=== PATIENT | female | born 1990 | race Caucasian/White ===

== ENCOUNTER 2016-06-29 13:35 | Inpatient (IN) | payer OTHER, MEDICAID ==
[~2016-06-29] VITALS: Ht 170.2 cm; Wt 81.6 kg
[2016-06-29 18:00] VITALS: BP 136/94
[2016-06-29] MEDS ORDERED: ENOXAPARIN 30 MG/0.3 ML (LOVENOX) SYR SC SCH (19:00)
[2016-06-29] MEDS: HYDROcodone/APAP 7.5 MG/325 MG (LORTAB, LORCET PLUS) TABLET PO PRN (19:50)
[2016-06-29] MEDS: DULoxetine 30 MG (CYMBALTA) CAP PO SCH (20:53)
[2016-06-29] MEDS: SENNA W/DOCUSATE (SENOKOT S) TABLET PO SCH (21:35)
[2016-06-29] MEDS ORDERED: DULO60CA6 PO (23:25)
[2016-06-29] MEDS ORDERED: CLON1TAB PO (23:25)
[2016-06-30 05:00] VITALS: BP 143/89
[2016-06-30] MEDS: HYDROcodone/APAP 7.5 MG/325 MG (LORTAB, LORCET PLUS) TABLET PO PRN ×4 (05:02→20:38)
[2016-06-30 06:16] LABS: BASOPHILS # (AUTO) 0.1 10^3/uL (0.0-0.1); BASOPHILS % (AUTO) 1 % (0-10); EOSINOPHILS # (AUTO) 0.2 10^3/uL (0.0-0.3); EOSINOPHILS % (AUTO) 3 % (0-10); LYMPHOCYTES # (AUTO) 1.7 X 10^3 (1.0-4.0); LYMPHOCYTES % (AUTO) 25 % (12-44); MEAN CORPUSCULAR HEMOGLOBIN 28 PG (25-34); MEAN CORPUSCULAR HGB CONC 34 G/DL (32-36); MEAN CORPUSCULAR VOLUME 84 FL (80-99); MEAN PLATELET VOLUME 11.4 FL (7.4-10.4); MONOCYTES # (AUTO) 0.3 X 10^3 (0.0-1.0); MONOCYTES % (AUTO) 5 % (0-12); NEUTROPHILS # (AUTO) 4.6 X 10^3 (1.8-7.8); NEUTROPHILS % (AUTO) 66 % (42-75); PLATELET COUNT 223 10^3/uL (130-400); RED BLOOD COUNT 3.85 10^6/uL (4.35-5.85); RED CELL DISTRIBUTION WIDTH 14.2 % (10.0-14.5); WHITE BLOOD COUNT 6.9 10^3/uL (4.3-11.0)
[2016-06-30 06:54] LABS: ALANINE AMINOTRANSFERASE 538 U/L (0-55); ALBUMIN 3.4 G/DL (3.2-4.5); ANION GAP 7 MMOL/L (5-14); ASPARTATE AMINO TRANSFERASE 169 U/L (5-34); BILIRUBIN,TOTAL 0.4 MG/DL (0.1-1.0); BLOOD UREA NITROGEN 10 MG/DL (7-18); BUN/CREATININE RATIO 14; CALCIUM 8.7 MG/DL (8.5-10.1); CARBON DIOXIDE 26 MMOL/L (21-32); CHLORIDE 105 MMOL/L (98-107); GFR ESTIMATED > 60; GLUCOSE 94 MG/DL (70-105); SODIUM 138 MMOL/L (135-145); TOTAL PROTEIN 6.2 G/DL (6.4-8.2)
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
[2016-06-30] MEDS: SENNA W/DOCUSATE (SENOKOT S) TABLET PO SCH ×2 (09:05→20:38)
[2016-06-30] MEDS: clonazePAM 1 MG (KlonoPIN) TAB PO SCH (09:05)
[2016-06-30] MEDS: DULoxetine 30 MG (CYMBALTA) CAP PO SCH ×2 (09:06→20:37)
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
[2016-06-30] MEDS: BACITRACIN OINTMENT 28 GM TUBE TOP SCH ×2 (14:20→21:00)
--- NOTE | 2016-06-30 15:06 | Therapy Group Daily Note ---
Therapy Daily Group Note Exercises Balance, Sit to/from Stand, Fine Motor, UE Exercise Other/Notes PT ambulated to Group using FWW at [facility]. Pt participated in PT/OT Group which involved Introduction (Name, Where are you from and Favorite Springtime Activity ), Socialization, Sit to Stand, Standing Balance, UE Ex/Fine Motor, Memory Recall for remembering a way to prevent fall in the home that were reviewed in the last Group a few days previous as well as Problem Solving during table top activity. Pt actively participated in Group by recalling Fall Prevention, performing EX and participating in table top game independently. Pt returned to room to rest at end of Group with all needs met. Start Time: 13:00 Stop Time: 14:15 Total Billed Treatment Time: 75 Total Billed Treatment 1, GRP THEO LAST DELI DEPARTMENT MANAGER Jun 30, 2016 15:06
[2016-06-30 18:50] VITALS: BP 138/86
[2016-06-30] MEDS: ENOXAPARIN 40 MG/0.4 ML (LOVENOX) SYR SC SCH (18:58)
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
[2016-07-01] MEDS: HYDROcodone/APAP 7.5 MG/325 MG (LORTAB, LORCET PLUS) TABLET PO PRN ×4 (01:35→22:53)
[2016-07-01 05:40] VITALS: BP 121/80
[2016-07-01 06:12] LABS: BASOPHILS # (AUTO) 0.1 10^3/uL (0.0-0.1); BASOPHILS % (AUTO) 1 % (0-10); EOSINOPHILS # (AUTO) 0.3 10^3/uL (0.0-0.3); EOSINOPHILS % (AUTO) 5 % (0-10); LYMPHOCYTES # (AUTO) 1.9 X 10^3 (1.0-4.0); LYMPHOCYTES % (AUTO) 35 % (12-44); MEAN CORPUSCULAR HEMOGLOBIN 29 PG (25-34); MEAN CORPUSCULAR HGB CONC 34 G/DL (32-36); MEAN CORPUSCULAR VOLUME 85 FL (80-99); MEAN PLATELET VOLUME 11.3 FL (7.4-10.4); MONOCYTES # (AUTO) 0.4 X 10^3 (0.0-1.0); MONOCYTES % (AUTO) 8 % (0-12); NEUTROPHILS # (AUTO) 2.9 X 10^3 (1.8-7.8); NEUTROPHILS % (AUTO) 52 % (42-75); PLATELET COUNT 222 10^3/uL (130-400); RED BLOOD COUNT 3.75 10^6/uL (4.35-5.85); RED CELL DISTRIBUTION WIDTH 14.3 % (10.0-14.5); WHITE BLOOD COUNT 5.6 10^3/uL (4.3-11.0)
[2016-07-01 06:47] LABS: ALANINE AMINOTRANSFERASE 535 U/L (0-55); ALBUMIN 3.3 G/DL (3.2-4.5); ANION GAP 9 MMOL/L (5-14); ASPARTATE AMINO TRANSFERASE 349 U/L (5-34); BILIRUBIN,TOTAL 0.8 MG/DL (0.1-1.0); BLOOD UREA NITROGEN 13 MG/DL (7-18); BUN/CREATININE RATIO 19; CALCIUM 8.7 MG/DL (8.5-10.1); CARBON DIOXIDE 26 MMOL/L (21-32); CHLORIDE 105 MMOL/L (98-107); GFR ESTIMATED > 60; GLUCOSE 88 MG/DL (70-105); POTASSIUM 4.1 MMOL/L (3.6-5.0); SODIUM 140 MMOL/L (135-145); TOTAL PROTEIN 6.1 G/DL (6.4-8.2)
[2016-07-01] MEDS: SENNA W/DOCUSATE (SENOKOT S) TABLET PO SCH ×2 (08:10→21:47)
[2016-07-01] MEDS: DULoxetine 30 MG (CYMBALTA) CAP PO SCH ×2 (08:10→21:49)
[2016-07-01] MEDS: clonazePAM 1 MG (KlonoPIN) TAB PO SCH (08:10)
[2016-07-01] MEDS: BACITRACIN OINTMENT 28 GM TUBE TOP SCH ×2 (09:20→21:49)
--- NOTE | 2016-07-01 09:43 | Physical Therapy Daily Note ---
PT Daily Note-Current Subjective States that she is doing okay. Pain Numeric Pain Scale: 3 Location: Right Location Body Site: Pelvic Transfers Functional [place] Measure 0=Not Assessed/NA 4=Minimal Assistance 1=Total Assistance 5=Supervision or Setup 2=Maximal Assistance 6=Modified [place] 3=Moderate Assistance 7=Complete IndependenceIRFPAI Quality Coding Scale 6 Independent with activity with or without an assistive device 5 Patient requires set up or clean up by helper. Patient completes activity by themselves 4 Supervision or touching assist (CGA). [place] provide cues , steadying assist 3 The helper provides less than half the effort to complete the activity 2 The helper provides more than half the effort to complete the activity 1 Dependent. The helper does all the effort to complete an activity 7 Patient refused to complete or attempt activity 9 The patient did not perform the activity before the current illness or injury 88 Not attempted due to Medical conditions or safety concerns Transfers (B, C, W/C) (FIM): 5 Scootin Rollin Roll Left to Right (QC): 5 Supine to/from Sit: 5 Sit to/from Stand: 5 Sit to Lying (QC): 5 Sit to Stand (QC): 5 Chair/Ntx-hp-Jpoip Xfer(QC): 5 Bed to/from Chair: 5 Car Transfer (QC): 7 Weight Bearing Weight Bearing Restriction: Weight Bearing/Tolerated Gait Training Does the Patient Walk?: Yes Gait (FIM): 5 Distance (FIM): 3=150 ft Distance: 500 feet Walk 10 feet (QC): 5 Walk 50 ft with 2 Turns(QC): 5 Walk 150 ft (QC): 5 Walking 10ft/uneven surface-QC: 7 Gait Level of Assist: 5 Gait Persons Needed: 1 Wheelchair Training Does the Pt Use a Wheelchair?: No Exercises Seated Therapy Exercises: Long arc quads, Hip flexion Seated Reps: 10 NuStep Minutes: 13 NuStep Workload: 5 Assessment Current Status: Excellent Progress patient did well with all exercises. PT Short Term Goals Short Term Goals Time Frame: Jul 07, 2016 Gait (FIM): 5 Gait Distance Comment: 500' Gait Level of Assist: 5 Gait Assistive Device: Cane Single Point PT Alf Goals Coal Loader Goals PT Alf Goals Time Frame: Jul 21, 2016 Transfers (B,C,W/C) (FIM): 6 Sit to Lying (QC): 6 Lying-Sitting on Side/Bed(QC): 6 Sit to Stand (QC): 6 Rollin Roll Left to Right (QC): 6 Chair/Jvy-lb-Ezwyg Xfer(QC): 6 Car Transfer (QC): 5 Gait (FIM): 6 Distance: 500' Walk 10 feet (QC): 6 Walk 10ft-Uneven Surface(QC): 6 Walk 50ft with 2 Turns (QC): 6 Walk 150 ft (QC): 6 Gait Assistive Device: Cane Single Point Stairs (FIM): 5 # of Steps: 12 1 Step (curb) (QC): 4 4 Steps (QC): 4 12 Steps (QC): 4 Stairs Level Of Assist: 5 PT Plan Treatment/Plan Treatment Plan: Continue Plan of Care Treatment Plan: Bed Mobility, Education, Functional Activity Shannon, Functional Strength, Group Therapy, Gait, Safety, Therapeutic Exercise, Transfers Treatment Duration: Jul 21, 2016 Visits Per Week: 10-11 Minutes/Day (M-F): 60-90 Minutes/Day (Sat/Arias): 15-30 Time/GCodes Time In: 904 Time Out: 934 Total Billed Treatment Time: 30 Total Billed Treatment 1, EX x 15, GTx 15 G Codes Necessary: MARSHALL Ponce PT Jul 01, 2016 09:43
--- NOTE | 2016-07-01 12:45 | Occupational Ther Daily Note ---
OT Current Status-Daily Note Subjective Pt seen up in room, agreeable to OT. No pain mentioned Appearance Alert, cooperative Mental Status/Objective Functional [place] Measure 0=Not Assessed/NA 4=Minimal Assistance 1=Total Assistance 5=Supervision or Setup 2=Maximal Assistance 6=Modified [place] 3=Moderate Assistance 7=Complete [place] ADL-Treatment Functional [place] Measure 0=Not Assessed/NA 4=Minimal Assistance 1=Total Assistance 5=Supervision or Setup 2=Maximal Assistance 6=Modified [place] 3=Moderate Assistance 7=Complete IndependenceIRFPAI Quality Coding Scale 6 Independent with activity with or without an assistive device 5 Patient requires set up or clean up by helper. Patient completes activity by themselves 4 Supervision or touching assist (CGA). [place] provide cues , steadying assist 3 The helper provides less than half the effort to complete the activity 2 The helper provides more than half the effort to complete the activity 1 Dependent. The helper does all the effort to complete an activity 7 Patient refused to complete or attempt activity 9 The patient did not perform the activity before the current illness or injury 88 Not attempted due to Medical conditions or safety concerns Grooming (FIM): 5 (Setup to brush teeth at sink, FWW. pt education to keep walker in front of her for safely ) Oral Hygiene (QC): 5 Other Treatment Pt reported she feels comfortable to toileting herself. Pt education in hand exercises to increase strength and ROM. 10 reps correction officer and pinch with pink (medium ) foam exercises and 10 reps intrinsic exercises. Pt educ yellow theraband ( light resistance), doing exercises that work on muscles used for safe sits to stand. Exercises written on while board for joann to do over weekend: grasp, 2 intrinsic exercises, 2 theraband exercises, with pt verbalizing and demonstrating understanding. Pt left up in recliner, all needs met. Education OT Patient Education: Disease process (intrinsic function, tenodesis function) , Exercise program, Purpose of tx/functional activities Teaching Recipient: Patient Teaching Methods: Discussion Response to Teaching: Verbalize Understanding OT Short Term Goals Short Term Goals 1=Demonstrate adherence to instructed precautions during ADL tasks. 2=Patient will verbalize/demonstrate understanding of assistive devices/ modifications for ADL. 3=Patient will improve strength/tolerance for activity to enable patient to perform ADL's. OT Dining Room Tables Set Up Attendant Goals Usp Goals Time Frame: Jul 14, 2016 Eating (FIM): 7 Eating (QC): 6 Groomin Oral Hygiene (QC): 6 Bathing(FIM): 6 Shower/Bathe Self (QC): 6 Upper Body Dressing(FIM): 6 Upper Body Dressing (QC): 6 Lower Body Dressing(FIM): 6 Lower Body Dressing (QC): 6 On/Off Footwear (QC): 6 Toileting(FIM): 6 Toileting Hygiene (QC): 6 Toilet/Commode Transfer(FIM): 6 Toilet/Commode Transfer (QC): 6 Shower Transfer(FIM): 6 Comprehension(FIM): 5 Expression (FIM): 6 Social Interaction(FIM): 6 Problem Solving(FIM): 5 Memory(FIM): 5 Additional Goals: 2-Verbalize Understanding, 3-ImproveStrength/Shannon 1=Demonstrate adherence to instructed precautions during ADL tasks. 2=Patient will verbalize/demonstrate understanding of assistive devices/ modifications for ADL. 3=Patient will improve strength/tolerance for activity to enable patient to perform ADL's. OT Education/Plan Problem List/Assessment Pt would benefit from skilled OT to increase her independence in basic self care to allow her to safely return home with friends or family. Discharge Recommendations Plan/Recommendations: Continue POC Treatment Plan/Plan of Care Patient would benefit from OT for education, treatment and training to promote independence in ADL's, mobility, safety and/or upper extremity function for ADL' s. Plan of Care: ADL Retraining, Functional Mobility, Group Exercise/Act as Ind ( education, exercise, functional activities, activity tolerance, memory, socialization), UE Funct Exercise/Act, UE Neuromus Re-Ed/Coord Treatment Duration: Jul 14, 2016 Visits Per Week: 10-11 Minutes/Day (M-F): 75-90 Minutes/Day (Sat/Arias): 15-30 Agreement: Yes Rehab Potential: Good Time/GCodes Start Time: 11:00 Stop Time: 11:30 Total Time Billed (hr/min): 30 Billed Treatment Time visit, 10 minutes ADL, 20 minutes exercise ASHLEY MARTIN OT Jul 01, 2016 12:45
[2016-07-01 18:22] VITALS: BP 123/82
[2016-07-01] MEDS: ENOXAPARIN 40 MG/0.4 ML (LOVENOX) SYR SC SCH (18:24)
[2016-07-02] MEDS: HYDROcodone/APAP 7.5 MG/325 MG (LORTAB, LORCET PLUS) TABLET PO PRN ×5 (03:15→23:29)
[2016-07-02 05:38] VITALS: BP 130/82
[2016-07-02] MEDS: clonazePAM 1 MG (KlonoPIN) TAB PO SCH (08:25)
[2016-07-02] MEDS: DULoxetine 30 MG (CYMBALTA) CAP PO SCH ×2 (08:25→21:48)
[2016-07-02] MEDS: SENNA W/DOCUSATE (SENOKOT S) TABLET PO SCH ×2 (08:25→21:48)
[2016-07-02] MEDS: BACITRACIN OINTMENT 28 GM TUBE TOP SCH ×2 (08:26→21:49)
[2016-07-02 17:36] VITALS: BP 127/84
[2016-07-02] MEDS: ENOXAPARIN 40 MG/0.4 ML (LOVENOX) SYR SC SCH (18:56)
[2016-07-03] MEDS: HYDROcodone/APAP 7.5 MG/325 MG (LORTAB, LORCET PLUS) TABLET PO PRN ×3 (05:37→14:52)
[2016-07-03 05:51] VITALS: BP 116/75
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
[2016-07-03] MEDS: clonazePAM 1 MG (KlonoPIN) TAB PO SCH (08:53)
[2016-07-03] MEDS: SENNA W/DOCUSATE (SENOKOT S) TABLET PO SCH (08:53)
[2016-07-03] MEDS: BACITRACIN OINTMENT 28 GM TUBE TOP SCH (08:53)
[2016-07-03] MEDS: DULoxetine 30 MG (CYMBALTA) CAP PO SCH (08:53)
--- NOTE | 2016-07-03 11:53 | Occupational Ther Daily Note ---
OT Current Status-Daily Note Subjective "I feel really good today, I'm ready to go home." Appearance Pt. is smiling when OT walks in room. Indicates that she would like to go home very soon. Spoke with social work about this. Mental Status/Objective Patient Orientation: Person, Place, Time, Situation Functional [place] Measure 0=Not Assessed/NA 4=Minimal Assistance 1=Total Assistance 5=Supervision or Setup 2=Maximal Assistance 6=Modified [place] 3=Moderate Assistance 7=Complete [place] ADL-Treatment Functional [place] Measure 0=Not Assessed/NA 4=Minimal Assistance 1=Total Assistance 5=Supervision or Setup 2=Maximal Assistance 6=Modified [place] 3=Moderate Assistance 7=Complete IndependenceIRFPAI Quality Coding Scale 6 Independent with activity with or without an assistive device 5 Patient requires set up or clean up by helper. Patient completes activity by themselves 4 Supervision or touching assist (CGA). [place] provide cues , steadying assist 3 The helper provides less than half the effort to complete the activity 2 The helper provides more than half the effort to complete the activity 1 Dependent. The helper does all the effort to complete an activity 7 Patient refused to complete or attempt activity 9 The patient did not perform the activity before the current illness or injury 88 Not attempted due to Medical conditions or safety concerns Eating (FIM): 7 Eating (QC): 6 Grooming (FIM): 6 Oral Hygiene (QC): 6 Bathing (FIM): 6 Shower/Bathe Self (QC): 6 Upper Body (FIM): 6 Upper Body Dressing (QC): 6 Lower Body Dressing (FIM): 6 Lower Body Dressing (QC): 6 On/Off Footwear (QC): 6 Toileting (FIM): 6 Toileting Hygiene (QC): 6 Transfers (B, C, W/C) (FIM): 6 Toilet/Commode Transfer (FIM): 6 Toilet Transfer (QC): 6 Shower Transfer(FIM): 6 Other Treatment Pt. is able to bathe and dress self with use of walker for balance. Able to do all tasks with Mod I/I. Pt. indicates that she is ready to go home. Would like a walker but does not think she will need anything else. Maybe a shower seat? Pt. plans to discharge to [place] to be with friends. She states that they will provide a good support system and keep her accountable. Pt. states that her goal is to see her kids again. Pt. also states that if she needs assistance with bandage changes at home, that her friends can assist her. Reported this to social work, who will talk with pt. After ADLs, pt. ambulated to therapy gym with Mod I using walker. Able to complete armbike x 12 minutes at mod resistance to increase overall strength for daily tasks. Went back to room. All needs met. Education OT Patient Education: Exercise program, Modified ADL techniques, Progress toward Goal/Update tx plan, Purpose of tx/functional activities, Reviewed precautions, Rehab process, Transfer techniques Teaching Recipient: Patient Teaching Methods: Demonstration, Discussion Response to Teaching: Verbalize Understanding, Return Demonstration OT Short Term Goals Short Term Goals 1=Demonstrate adherence to instructed precautions during ADL tasks. 2=Patient will verbalize/demonstrate understanding of assistive devices/ modifications for ADL. 3=Patient will improve strength/tolerance for activity to enable patient to perform ADL's. OT Nurse Reviewer Goals Nurse Reviewer Goals Time Frame: Jul 14, 2016 Eating (FIM): 7 Eating (QC): 6 Groomin Oral Hygiene (QC): 6 Bathing(FIM): 6 Shower/Bathe Self (QC): 6 Upper Body Dressing(FIM): 6 Upper Body Dressing (QC): 6 Lower Body Dressing(FIM): 6 Lower Body Dressing (QC): 6 On/Off Footwear (QC): 6 Toileting(FIM): 6 Toileting Hygiene (QC): 6 Toilet/Commode Transfer(FIM): 6 Toilet/Commode Transfer (QC): 6 Shower Transfer(FIM): 6 Comprehension(FIM): 5 Expression (FIM): 6 Social Interaction(FIM): 6 Problem Solving(FIM): 5 Memory(FIM): 5 Additional Goals: 2-Verbalize Understanding, 3-ImproveStrength/Shannon 1=Demonstrate adherence to instructed precautions during ADL tasks. 2=Patient will verbalize/demonstrate understanding of assistive devices/ modifications for ADL. 3=Patient will improve strength/tolerance for activity to enable patient to perform ADL's. OT Education/Plan Problem List/Assessment Assessment: Decreased Activ Tolerance Pt would benefit from skilled OT to increase her independence in basic self care to allow her to safely return home with friends or family. Discharge Recommendations Plan/Recommendations: Continue POC Therapy D/C Recommendations: Home Independently Equpiment Recommendations-D/C: Bath Chair Comment Pt. would benefit from a walker as well. Target Placement Pt. would like to discharge to home of friends in [place], [place]. Treatment Plan/Plan of Care Treatment,Training & Education: Yes Patient would benefit from OT for education, treatment and training to promote independence in ADL's, mobility, safety and/or upper extremity function for ADL' s. Plan of Care: ADL Retraining, Functional Mobility, Group Exercise/Act as Ind ( education, exercise, functional activities, activity tolerance, memory, socialization), UE Funct Exercise/Act, UE Neuromus Re-Ed/Coord Treatment Duration: Jul 14, 2016 Visits Per Week: 10-11 Minutes/Day (M-F): 75-90 Minutes/Day (Sat/Arias): 15-30 Agreement: Yes Rehab Potential: Good Time/GCodes Start Time: 09:00 Stop Time: 10:15 Total Time Billed (hr/min): 75 Billed Treatment Time 1, ADL x 45minutes, Ex x 30minutes VIDAL MARINA OT Jul 03, 2016 11:53
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
[2016-07-03] MEDS ORDERED: HYDR-3816 PO (12:15)
[2016-07-03] MEDS ORDERED: BACI28.4 TOP (12:15)
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
--- NOTE | 2016-07-03 12:43 | Speech Therapy Daily Note ---
Speech Daily Progress Note Subjective The patient was seated upright in bed upon entrance. The patient greeted the clinician appropriately and agreed to participate in the cognitive treatment session on this date. Per patient, "I feel like the fog has lifted." Objective A re-evaluation was completed of the patient's cognitive status using the Leobardo Cognitive Assessment (MoCA): The patient demonstrated a result of +26/ 30 correlating to cognitive skills grossly within normal limits. The patient demonstrated difficulty with delayed recall of five words, recalling one independently and requiring category cues for the identification of the remaining four. Additionally, the patient was unable to complete cube copying. The patient accurately completed trail-making, clock drawing, picture identification, serial seven subtraction, orientation, word-finding, and language tasks. Assessment Assessment Current Status: Good Progress Treatment Plan Discontinue ST, Goals Met Communication Comprehension: 5 Expression: 6 Social Cognition Social Interaction: 6 Problem Solvin Memory: 5 Speech Short Term Goals Short Term Goals Short Term Goals 1. The patient will recall and demonstrate two to three functional memory strategies with 80% accurately, independently. 2. The patient will demonstrate 80% accuracy with functional problem solving structured tasks. Time Frame-STG: One Week Speech Correction Goals Language Instructor Goals 1. The patient will demonstrate improved cognitive linguistic skills for increased safety and function with ADL's in the least restrictive setting. Time Frame: Two Weeks Comprehension: 5 Expression: 6 Social Interaction: 6 Problem Solvin Memory: 5 Speech-Plan Treatment Plan Speech Therapy Treatment Plan: Discontinue ST, Goals Met Discontinue skilled speech therapy as the patient has met goals initially set by clinician. Treatment Duration: Jul 14, 2016 # of days/week Five. Visits Per Week: Five. Minutes/Day (M-F): 30 Rehab Potential: Good Safety Risks/Education Teaching Recipient: Patient Teaching Methods: Discussion Response to Teaching: Verbalize Understanding Education Topics Provided: Plan of Care, Results Time Speech Therapy Time In: 08:15 Speech Therapy Time Out: 08:45 Total Billed Time: 30 Billed Treatment Time 1MARIELENA ELIZABETH ST Jul 03, 2016 12:43
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
[2016-07-03 15:41] VITALS: BP 119/71
--- NOTE | 2016-07-04 08:16 | Therapy Team Discharge Summary ---
Therapy Discharge Summary Discharge Recommendations Date of Discharge Jul 03, 2016 at 15:35 Therapy D/C Recommendations: Home Independently Occupational Therapy Pt. has been seen by occupational therapy to make sure that pt. is independent with daily tasks before discharge. Pt. has demonstrated ability to complete bathing and dressing tasks with Mod I, using only walker or shower seat for stability when needed. Pt. states that she will need a walker for home, and maybe a shower seat. However, no other equipment is needed. Pt. is able to complete other tasks with independence, and is eager to return home. Pt. plans to discharge home with friends that can assist her and hold her "accountable." No further OT needed at this time. PT Paper Twister Goals Paper Twister Goals PT Paper Twister Goals Time Frame: Jul 21, 2016 Transfers (B,C,W/C) (FIM): 6 (met 07/03/16) Roll Left to Right (QC): 6 (met 07/03/16) Sit to Lying (QC): 6 (met 07/03/16) Lying-Sitting on Side/Bed(QC): 6 (met 07/03/16) Sit to Stand (QC): 6 (met 07/03/16) Chair/Dom-[place]une Xfer(QC): 6 (met 07/17) Car Transfer (QC): 5 (met 07/03/16) Gait (FIM): 6 (met 07/03/16) Distance: 500' Walk 10 feet (QC): 6 (met 07/03/16) Walk 10ft-Uneven Surface(QC): 6 (met 07/03/16) Walk 50ft with 2 Turns (QC): 6 (met 07/03/16) Walk 150 ft (QC): 6 (met 07/03/16) Gait Assistive Device: Cane Single Point Stairs (FIM): 5 (met 07/03/16) # of Steps: 12 (met 07/03/16) 1 Step (curb) (QC): 4 (met 07/03/16) 4 Steps (QC): 4 (met 07/03/16) 12 Steps (QC): 4 (met 07/03/16) Stairs Level Of Assist: 5 (met 07/03/16) OT Skilled Nursing Goals Skilled Nursing Goals Time Frame: Jul 14, 2016 Eating (FIM): 7 (met) Eating (QC): 6 (met) Oral Hygiene (QC): 6 (met) Grooming(FIM): 6 (met) Bathing(FIM): 6 (met) Shower/Bathe Self (QC): 6 (met) Upper Body Dressing(FIM): 6 (met) Upper Body Dressing (QC): 6 (met) Lower Body Dressing(FIM): 6 (met) Lower Body Dressing (QC): 6 (met) On/Off Footwear (QC): 6 (met) Toileting(FIM): 6 (met) Toileting Hygiene (QC): 6 (met) Toilet/Commode Transfer(FIM): 6 (met) Toilet/Commode Transfer (QC): 6 (met) Shower Transfer(FIM): 6 (met) Comprehension(FIM): 5 (MET) Expression (FIM): 6 (MET) Social Interaction(FIM): 6 (MET) Problem Solving(FIM): 5 (MET) Memory(FIM): 5 (MET) Additional Goals: 2-Verbalize Understanding, 3-ImproveStrength/Shannon 1=Demonstrate adherence to instructed precautions during ADL tasks. 2=Patient will verbalize/demonstrate understanding of assistive devices/ modifications for ADL. 3=Patient will improve strength/tolerance for activity to enable patient to perform ADL's. Speech Skilled Nursing Goals Skilled Nursing Goals 1. The patient will demonstrate improved cognitive linguistic skills for increased safety and function with ADL's in the least restrictive setting. Time Frame: Two Weeks Comprehension: 5 (MET) Expression: 6 (MET) Social Interaction: 6 (MET) Problem Solvin (MET) Memory: 5 (MET) VIDAL MARINA OT Jul 04, 2016 08:16
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
--- OUTSIDE RECORDS SUMMARY | 2016-07-23 07:05 | XMS REPORT | Continuity of Care Document ---
Author Author [employer] Organization [employer] Address Unknown Phone Unavailable Care Team Providers Care Overlock Waistline Joiner Name Role Phone [employer] Unavailable Unavailable Problems Problem Status Onset Date Classification Date Reported Comments Source Backache, unspecified 2013 Diagnosis 12/12/2013 [facility] Sciatia 09/29/2013 Diagnosis 10/03/2013 [facility] Contact dermatitis and other eczema due to plants [except food] 09/17/2013 Diagnosis 09/21/2013 [facility] No data available for this section Problem 12/12/2013 [facility] Medications Allergies, Adverse Reactions, Alerts Substance Category Reaction Severity Reaction type Status Date Reported Comments Source NKA Assertion Drug allergy [facility] Immunizations Immunization Date Given Site Status Last Updated Comments Source No data available for this section No data available for this section [facility], [facility] Results Vital Signs Encounters Location Location Details Encounter Type Encounter Number Reason For Visit Attending Provider ADM Date DC Date Status Source [facility] [id number] Bradley Mcgill 09/17/2013 09/18/2013 [facility] Family [facility] [id number] Ricci Guevara 09/29/2013 09/30/2013 [facility] [id number] Clinic ( Outpatient) [id number] Ricci Guevara 09/30/2013 Active [facility] [id number] Cullen Orta 12/08/2013 12/09/2013 [facility] Procedures Procedure Code Date Perfomer Comments Source No data available for this section [facility] Plan of Care Social History Assessment and Plan Family History Value Date Source Advance Directives Order Name Results Value Date Source
== END 2016-07-03 15:35 | disposition home health service (06) | DRG 561 ==
LOC: ENPENDDIS 07-03 13:00
PROVIDERS: ADMIT Physical Medicine & Rehabilitation; ATTEND Physical Medicine & Rehabilitation
DX: S32.501D Unspecified fracture of right pubis, subsequent encounter for fracture with routine healing (principal); S30.810D Abrasion of lower back and pelvis, subsequent encounter; F15.10 Other stimulant abuse, uncomplicated; R03.0 Elevated blood-pressure reading, without diagnosis of hypertension; F17.210 Nicotine dependence, cigarettes, uncomplicated; G31.84 Mild cognitive impairment of uncertain or unknown etiology; D64.9 Anemia, unspecified; V99.XXXD Unspecified transport accident, subsequent encounter
CPT/HCPCS: 36415; 80053; 85025

== ENCOUNTER 2017-01-02 21:52 | Emergency (ER) | payer MEDICAID ==
[~2017-01-02] VITALS: Ht 170.2 cm; Wt 84.3 kg
[~2017-01-02 21:52] MED LIST: BACI28.4 TOP; CLON1TAB PO; DULO60CA6 PO; HYDR-3816 PO
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
[2017-01-02 22:21] LABS: BASOPHILS # (AUTO) 0.1 10^3/uL (0.0-0.1); BASOPHILS % (AUTO) 2 % (0-10); EOSINOPHILS % (AUTO) 0 % (0-10); LYMPHOCYTES # (AUTO) 2.3 X 10^3 (1.0-4.0); LYMPHOCYTES % (AUTO) 28 % (12-44); MEAN CORPUSCULAR HEMOGLOBIN 27 PG (25-34); MEAN CORPUSCULAR HGB CONC 33 G/DL (32-36); MEAN CORPUSCULAR VOLUME 81 FL (80-99); MONOCYTES # (AUTO) 0.4 X 10^3 (0.0-1.0); MONOCYTES % (AUTO) 5 % (0-12); NEUTROPHILS # (AUTO) 5.3 X 10^3 (1.8-7.8); NEUTROPHILS % (AUTO) 65 % (42-75); PLATELET COUNT 553 10^3/uL (130-400); RED BLOOD COUNT 4.51 10^6/uL (4.35-5.85); RED CELL DISTRIBUTION WIDTH 15.8 % (10.0-14.5); WHITE BLOOD COUNT 8.2 10^3/uL (4.3-11.0)
[2017-01-02 22:25] VITALS: BP 194/134
== END 2017-01-02 22:25 | disposition home or self-care (01) ==
LOC: EDUNIT# 21:52 → ER 21:55
DX: T81.89XA Other complications of procedures, not elsewhere classified, initial encounter; F41.9 Anxiety disorder, unspecified; Z98.890 Other specified postprocedural states
CPT/HCPCS: 36415; 85025; 87070; 87205; 99282

== ENCOUNTER 2017-01-14 08:50 | Emergency (ER) | payer MEDICAID, OTHER ==
[~2017-01-14] VITALS: Ht 170.2 cm; Wt 90.7 kg
--- OUTSIDE RECORDS SUMMARY | 2017-01-14 08:56 | XMS REPORT | Continuity of Care Document ---
Author Author [employer] Organization [employer] Address Unknown Phone Unavailable Care Team Providers Care Credit Card Associate Name Role Phone [employer] Unavailable Unavailable Problems Problem Status Onset Date Classification Date Reported Comments Source Impetigo (disorder) 2016 Diagnosis 10/22/2016 [facility] Backache, unspecified 2013 Diagnosis 12/12/2013 [facility] Sciatia 09/29/2013 Diagnosis 10/03/2013 [facility] Contact dermatitis and other eczema due to plants [except food] 09/17/2013 Diagnosis 09/21/2013 [facility] No data available for this section Problem 12/12/2013 [facility] Tobacco user (finding) Active Problem 11/28/2016 Added by Discern Expert based on Social History Documentation [facility] Medications Medication Details Route Status Patient Instructions Ordering Provider Order Date Source No Known Medications No known medications Active [facility] Allergies, Adverse Reactions, Alerts Substance Category Reaction Severity Reaction type Status Date Reported Comments Source NKA Assertion Drug allergy [facility] Immunizations Immunization Date Given Site Status Last Updated Comments Source No data available for this section No data available for this section [facility] Results Vital Signs Encounters Location Location Details Encounter Type Encounter Number Reason For Visit Attending Provider ADM Date DC Date Status Source [facility] [id number] Bradley Mcgill 09/17/2013 09/18/2013 [facility] [id number] Ricci Guevara 09/29/2013 09/30/2013 [facility] [id number] Clinic ( Outpatient) [id number] Ricci Guevara 09/30/[address] [facility] [id number] Cullen Orta 12/08/2013 12/09/2013 [facility] [id number] Deion Wesley 10/18/2016 10/19/2016 [facility] [id number] Clinic ( Outpatient) [id number] Izabela Pack 11/24/2016 Active [facility] Procedures Procedure Code Date Perfomer Comments Source No data available for this section [facility] Plan of Care Social History Assessment and Plan Family History Value Date Source Advance Directives Order Name Results Value Date Source
--- OUTSIDE RECORDS SUMMARY | 2017-01-14 08:56 | XMS REPORT ---
Author Author [facility] Organization [facility] Address Unknown Phone Unavailable Care Team Providers Care Matrix Inspector Name Role Phone Deion Wesley PCP Encounter [id number] Date(s): 10/18/16 - 10/18/[id number] [place] [address] Attending Physician: Deion Wesley MD Vital Signs No data available for this section Problem List Condition Effective Dates Status Health Status Informant Tobacco Active patient user(Confirmed)1 1Added by Discern Expert based on Social History Documentation Diagnosis Diagnosis Type Effective Dates Health Status Clinical Service Informant Impetigo Discharge 10/18/16 Diagnosis Allergies, Adverse Reactions, Alerts No Known Allergies Medications No Known Medications Results No data available for this section Immunizations No data available for this section Procedures No data available for this section Social History No data available for this section Assessment and Plan No data available for this section
--- OUTSIDE RECORDS SUMMARY | 2017-01-14 08:57 | XMS REPORT ---
Author Author [facility] Organization [facility] Address Unknown Phone Unavailable Care Team Providers Care Front Desk Receptionist Name Role Phone Deion Wesley PCP Encounter [id number] [id number] Date(s): 11/24/16 - 11/24/[address] [address] Attending Physician: Izabela Pack APRN Vital Signs No data available for this section Problem List Condition Effective Dates Status Health Status Informant Tobacco Active patient user(Confirmed)1 1Added by Discern Expert based on Social History Documentation Allergies, Adverse Reactions, Alerts No Known Allergies Medications No data available for this section Results No data available for this section Immunizations No data available for this section Procedures No data available for this section Social History No data available for this section Assessment and Plan No data available for this section
--- OUTSIDE RECORDS SUMMARY | 2017-01-14 08:57 | XMS REPORT | Clinical Summary ---
Author Author [facility] Organization [facility] Address Unknown Phone Unavailable Care Team Providers Care Photoengraver Name Role Phone PCP Unavailable Source Comments Some departments are not documenting in the electronic medical record. If you do not see the information that you expected, contact Release of Information in the Health Information Management department at [phone] for further assistance in locating additional records.[facility] Allergies No Known Allergies Current Medications Prescription Sig. Disp. Refills Start End Date Status Date traZODone (DESYREL) 50 mg Take 50-100 mg by mouth Active tablet at bedtime daily. DULoxetine DR (CYMBALTA) Take 30 mg by mouth twice Active 30 mg capsule daily. fluticasone (FLONASE) 50 Apply 2 Sprays to each Active mcg/actuation nasal spray nostril as directed daily. norgestimate-ethinyl Take 1 Tab by mouth Active estradiol(+) (ORTHO daily. TRI-TIRVBR74; HQEHACGS85; TRI-RBPNGRON73; TRI-IMHCHFZS02) tablet cyclobenzaprine Take 10 mg by mouth three Active (FLEXERIL) 10 mg tablet times daily as needed. diazepam (VALIUM) 10 mg Take 10 mg by mouth every Active tablet 6 hours as needed. HYDROcodone-acetaminophen Take 1-2 Tabs by mouth Active (+) (VICODIN) 10-325 mg every 6 hours as needed. 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 Obesity 11/07/2013 Family History Medical History Relation Name Comments Gout Father Arthritis Mother Cancer Mother Relation Name Status Comments Father Alive Maternal Grandfather Alive Maternal Grandmother Alive Mother Cancer (Age 49) Paternal Grandfather Paternal Grandmother Sister Alive Son Alive Son Alive Social History Tobacco Use Types Packs/Day Years Used Date Current Every Day Smoker Cigarettes 0.5 15 Smokeless Tobacco: Never Used Tobacco Cessation: Counseling Given: Yes Alcohol Use Drinks/Week oz/Week Comments Yes occasionally Sex Assigned at Date Recorded Not on file Last Filed Vital Signs Vital Sign Reading Time Taken Blood Pressure 146/84 04/21/2014 12:16 PM [employer] Pulse 77 04/21/2014 12:16 PM [employer] Temperature 37.1 C (98.7 F) 04/21/2014 12:15 PM [employer]ISTR[employer]ENT Respiratory Rate 14 03/25/2014 12:16 PM [employer]MINISTR[employer]ENT Oxygen Saturation 99% 04/21/2014 12:15 PM [employer]CEMENT ADMINISTRATION AGENT Inhaled Oxygen - - Concentration Weight 64.9 kg (143 lb) 04/21/2014 11:06 AM [employer]ORCEMENT ADMINISTRATION AGENT Height 172.7 cm (5' 8") 04/21/2014 11:06 AM [employer]ORC[employer] ADMINISTRATION AGENT Body Mass Index 21.74 04/21/2014 11:06 AM [employer] ENFORCEMENT ADMINISTRATION AGENT Plan of Treatment Health Maintenance Due Date Last Done Comments PHYSICAL (COMPREHENSIVE) 12/04/1995 EXAM PERTUSSIS VACCINE 12/04/1999 TETANUS VACCINE 2005 CERVICAL CANCER SCREENING 2009 INFLUENZA VACCINE 10/31/2016 Results Not on filefrom Last 3 Months
[2017-01-14 10:00] LABS: BASOPHILS # (AUTO) 0.1 10^3/uL (0.0-0.1); BASOPHILS % (AUTO) 2 % (0-10); EOSINOPHILS # (AUTO) 0.1 10^3/uL (0.0-0.3); EOSINOPHILS % (AUTO) 2 % (0-10); LYMPHOCYTES # (AUTO) 1.8 X 10^3 (1.0-4.0); LYMPHOCYTES % (AUTO) 32 % (12-44); MEAN CORPUSCULAR HEMOGLOBIN 27 PG (25-34); MEAN CORPUSCULAR HGB CONC 33 G/DL (32-36); MEAN CORPUSCULAR VOLUME 82 FL (80-99); MEAN PLATELET VOLUME 10.8 FL (7.4-10.4); MONOCYTES # (AUTO) 0.4 X 10^3 (0.0-1.0); MONOCYTES % (AUTO) 6 % (0-12); NEUTROPHILS # (AUTO) 3.2 X 10^3 (1.8-7.8); NEUTROPHILS % (AUTO) 58 % (42-75); PLATELET COUNT 355 10^3/uL (130-400); RED CELL DISTRIBUTION WIDTH 16.3 % (10.0-14.5); WHITE BLOOD COUNT 5.5 10^3/uL (4.3-11.0)
[2017-01-14 10:13] LABS: ANION GAP 10 MMOL/L (5-14); BLOOD UREA NITROGEN 16 MG/DL (7-18); BUN/CREATININE RATIO 20; CALCIUM 9.7 MG/DL (8.5-10.1); CARBON DIOXIDE 23 MMOL/L (21-32); CHLORIDE 108 MMOL/L (98-107); CREATININE SERUM 0.79 MG/DL (0.60-1.30); GFR ESTIMATED > 60; GLUCOSE 81 MG/DL (70-105); POTASSIUM 3.6 MMOL/L (3.6-5.0); SODIUM 141 MMOL/L (135-145)
[2017-01-14] MEDS ORDERED: KETOROLAC 60 MG/2 ML VIAL IM ONE (11:00)
[2017-01-14] MEDS ORDERED: CLIN300C11 PO (11:04)
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
[2017-01-14 11:26] VITALS: BP 157/107
== END 2017-01-14 11:25 | disposition home or self-care (01) ==
LOC: EDUNIT# 08:50 → ER 08:51
DX: K08.9 Disorder of teeth and supporting structures, unspecified (principal); F41.9 Anxiety disorder, unspecified; F32.9 Major depressive disorder, single episode, unspecified; F17.210 Nicotine dependence, cigarettes, uncomplicated; Z90.49 Acquired absence of other specified parts of digestive tract; Z82.49 Family history of ischemic heart disease and other diseases of the circulatory system; Z80.8 Family history of malignant neoplasm of other organs or systems
CPT/HCPCS: 36415; 80048; 85025; 86141; 87070; 87205; 99284

== ENCOUNTER 2019-03-11 06:00 | Inpatient (IN) | payer MEDICAID ==
[2019-03-11] VITALS (66 sets, daily range): BP systolic 91–130; BP diastolic 48–83
[~2019-03-11] VITALS: Ht 172.7 cm; Wt 113.9 kg
[~2019-03-11 06:00] MED LIST changes: +CLIN300C11 PO; +HYDR-34 PO; -HYDR-3816 PO
--- NOTE | 2019-03-11 06:02 | NUR ---
CARMENCITA VICENTE presented to unit via AMBULATION from home, accompanied by FAMILY, for INDUCTION. CARMENCITA VICENTE weighed, gowned, unable to void, and to bed. EFHM and TOCO applied, VS taken. CARMENCITA VICENTE oriented to bed controls, call light, TV, heat, and A/C controls.
[2019-03-11] MEDS ORDERED: MINERAL OIL CONCENTRATE 99.9% 15 ML UDC TOP PRN (06:15)
[2019-03-11 06:34] LABS: BASOPHILS # (AUTO) 0.1 10^3/uL (0.0-0.1); BASOPHILS % (AUTO) 1 % (0-10); EOSINOPHILS # (AUTO) 0.2 10^3/uL (0.0-0.3); EOSINOPHILS % (AUTO) 2 % (0-10); HEMATOCRIT 37 % (35-52); HEMOGLOBIN 12.8 G/DL (11.5-16.0); LYMPHOCYTES # (AUTO) 2.2 X 10^3 (1.0-4.0); LYMPHOCYTES % (AUTO) 21 % (12-44); MEAN CORPUSCULAR HEMOGLOBIN 31 PG (25-34); MEAN CORPUSCULAR HGB CONC 35 G/DL (32-36); MEAN CORPUSCULAR VOLUME 89 FL (80-99); MEAN PLATELET VOLUME 11.9 FL (7.4-10.4); MONOCYTES # (AUTO) 0.6 X 10^3 (0.0-1.0); MONOCYTES % (AUTO) 5 % (0-12); NEUTROPHILS # (AUTO) 7.3 X 10^3 (1.8-7.8); NEUTROPHILS % (AUTO) 71 % (42-75); PLATELET COUNT 207 10^3/uL (130-400); RED CELL DISTRIBUTION WIDTH 14.9 % (10.0-14.5); WHITE BLOOD COUNT 10.3 10^3/uL (4.3-11.0)
[2019-03-11] MEDS: D5 LR IV SOLUTION 1,000 ML IV SCH ×2 (07:21→15:20)
[2019-03-11] MEDS ORDERED: OXYTOCIN/NORMAL SALINE 500 ML IV SCH ×2 (07:22→20:00)
[2019-03-11] MEDS ORDERED: SUFENTA 0.6MCG/ML BUPIVA 0.125 100 ML ONE (13:10)
[2019-03-11] MEDS ORDERED: BUPIVACAINE 0.25% 30 ML (SENSORCAINE) VIAL ONE (13:39)
[2019-03-11] MEDS ORDERED: fentaNYL INJECTION 100 MCG/2 ML AMP ONE (13:39)
--- NOTE | 2019-03-11 13:42 | NUR ---
here for epidural placement. Procedure explained, consent reviewed and signed by anesthesia. Questions answered to patient's satisfaction. Time out taken to verify correct patient/procedure. 1346 Patient up to side of bed, assisted into sitting position. 1350 Betadine prep done x3 and sterile drape applied. 1352 Local done, see anesthesia record. 1357 Test dose given, see anesthesia record for drug and dosage. Epidural catheter secured in place. Epidural placement complete. 1403 Assisted back into bed, monitors adjusted. Epidural dosed, see anesthesia record. Epidural of Sufenta/Bupvicaine @12cc/hr stated per pump. Patient tolerated procedure well.
[2019-03-11] MEDS ORDERED: CATHETER FLUSH 10 ML SYR IV SCH ×2 (14:00→22:00)
[2019-03-11] MEDS ORDERED: LACTATED RINGERS 1,000 ML IV ONE (14:14)
[2019-03-11] MEDS ORDERED: NALOXONE 0.4 MG/ML 1 ML (NARCAN) VIAL IV PRN (14:15)
[2019-03-11] MEDS ORDERED: diphenhydrAMINE 50 MG/ML INJ (BENADRYL) IV PRN (14:15)
[2019-03-11] MEDS ORDERED: EPIDURAL (SUFENTA 0.6MCG/ML BUPIVA 0.125%) 100 ML BAG EPI SCH (14:15)
[2019-03-11] MEDS ORDERED: CATHETER FLUSH 10 ML SYR IV PRN (14:15)
[2019-03-11] MEDS ORDERED: ONDANSETRON 4 MG/2 ML (SDV) Z0FRAN IV PRN (14:15)
[2019-03-11] MEDS ORDERED: ACETAMINOPHEN 500 MG TAB (TYLENOL) PO PRN (16:15)
--- NOTE | 2019-03-11 19:56 | History & Physical-OB ---
OB - Chief Complaint & HPI Date/Time Date of Admission: Date of Admission: Mar 11, 2019 at 06:10 Date seen by a Provider: Mar 11, 2019 Time Seen by a Provider: 19:30 Chief Complaint/History OB-Reason for Admission/Chief: Induction of Labor Hx : 3 Hx Para: 3 Expected Date of Delivery: Mar 18, 2019 Gestational Age in Weeks: 39 Gestational Age in Days: 0 Indication for induction: maternal discomfort Admission Nurse Assessment Rev: Yes Allergies and Home Medications Allergies Coded Allergies: No Known Drug Allergies (Unverified , 06/29/16) Patient Home Medication List Home Medication List Reviewed: Yes OB - History Hx of Present Ultrasounds: Normal mid trimester US Obstetrical Complications: None Medical Complications: None Patient Past Medical History previously healthy Social History/Family History Recent Infectious Disease Expo: No Alcohol Use: Denies Use Recreational Drug Use: No 2nd Hand Smoke Exposure: Yes Immunizations Tetanus Booster (TDap): Unknown Date of Influenza Vaccine: Dec 31, 2018 OB - Admission Exam Physical Exam Vitals: Vital Signs 03/11/19 03/11/19 18:20 18:53 Temp 36.9 Pulse 63 Resp 18 B/P (MAP) 107/65 (79) Pulse Ox 98 O2 Delivery Room Air HEENT: NCAT Heart: Rhythm Normal Lungs: Clear Abdomen: Gravid Extremities: Normal Reflexes: Normal Cervical Dilatation: 10cm Effacement: 100% Station: +2 Membranes: Ruptured Amniotic Fluid: Clear Heart Rate: 130's Accelerations: No Accelerations Decelerations: Variable Decelerations Short Term Variability: Present Hyperbaric Nurse Variability: Average (6-25) Contractions on Admission: < 5 Minutes Apart Labs Laboratory Tests Test 03/11/19 06:25 Range/Units White Blood Count 10.3 4.3-11.0 10^3/uL Red Blood Count 4.17 L 4.35-5.85 10^6/uL Hemoglobin 12.8 11.5-16.0 G/DL Hematocrit 37 35-52 % Mean Corpuscular Volume 89 80-99 FL Mean Corpuscular Hemoglobin 31 25-34 PG Mean Corpuscular Hemoglobin Concent 35 32-36 G/DL Red Cell Distribution Width 14.9 H 10.0-14.5 % Platelet Count 207 130-400 10^3/uL Mean Platelet Volume 11.9 H 7.4-10.4 FL Neutrophils (%) (Auto) 71 42-75 % Lymphocytes (%) (Auto) 21 12-44 % Monocytes (%) (Auto) 5 0-12 % Eosinophils (%) (Auto) 2 0-10 % Basophils (%) (Auto) 1 0-10 % Neutrophils # (Auto) 7.3 1.8-7.8 X 10^3 Lymphocytes # (Auto) 2.2 1.0-4.0 X 10^3 Monocytes # (Auto) 0.6 0.0-1.0 X 10^3 Eosinophils # (Auto) 0.2 0.0-0.3 10^3/uL Basophils # (Auto) 0.1 0.0-0.1 10^3/uL OB - Assessment/Plan/Diagnosis Assessment Assessment: induction of labor Admission Dx Induction of labor at 39 weeks. Admission Status: Inpatient Order (span 2 midnights) Reason for Inpatient Admission: Induction of labor at 39 0/7 wga. Plan Plan: Expectant Management Induction Method: per Pitocin Protocol ALBER ERVIN MD Mar 11, 2019 19:56 POS
[2019-03-11] MEDS ORDERED: WITCH HAZEL(TUCKS) 40 EA JAR TOP PRN (20:00)
[2019-03-11] MEDS ORDERED: BENZOCAINE/MENTHOL (DERMOPLAST) 56 ML CAN TP PRN (20:00)
[2019-03-11] MEDS ORDERED: MEASLES,MUMPS,RUBELLA 1 EA INJ SQ ONE (20:00)
[2019-03-11] MEDS ORDERED: TETANUS,DIPTH,PERTUSS P/F (BOOSTRIX) 0.5 ML VIAL IM ONE (20:00)
--- NOTE | 2019-03-11 20:00 | OB Labor & Delivery Record ---
Vag Delivery Note Vag Delivery Note Date of Delivery: 03/11/19 Preoperative Diagnosis: Hollie Velez is a (28 /Para 3 / 3, Gestational Age (wks)39with [0 days] Postoperative Diagnosis: Same Surgeon: ALBER ERVIN Pig Breeder: [none] Anesthesia: [epidural] Delivery Type: [] Findings: [] Viable [male] infant, apgars [9/9], weight [6 pounds 13 ounces] Lacerations: Intact placenta with 3 vessel cord. No nuchal cord, body cord or shoulder dystocia Estimated Blood Loss: [150] ml Complications: None Condition: Stable Description of Procedure: The patient is a 28 year old female who presented [for induction of labor]. She was admitted and informed consent was obtained. Her labor course was remarkable for [nothing] She progressed to complete dilatation and began to push. She was then set up for delivery. The 's head was delivered atraumatically in the [OA] position. The shoulders and remainder of the infant's body were then delivered without difficulty. Upon delivery, the head was held below the level of the perineum and the mouth and nares were bulb suctioned. Cord was doubly clamped and cut after 60 seconds on maternal abdomen. An intact placenta with 3-vessel cord delivered via Silvana and there was found to be minimal bleeding.~ Vigorous fundal massage was performed and the fundus was found to be firm. IV oxytocin was given. Examination of the vagina and perineum revealed a [no] lacerations. Following the repair, sponge, instrument and needle counts were correct. Mom and baby were both in stable condition in the labor suite. Vitals - Labs Vital Signs - I&O Vital Signs Date Time Temp Pulse Resp B/P (MAP) Pulse Ox O2 Delivery O2 Flow Rate FiO2 03/11/19 18:53 63 18 107/65 (79) 98 Room Air 03/11/19 18:38 76 18 91/55 (67) 95 Room Air 03/11/19 18:22 66 18 96/52 (67) 96 Room Air 03/11/19 18:20 36.9 03/11/19 18:07 64 18 93/55 (68) 97 Room Air 03/11/19 17:52 67 18 122/73 (89) 99 Room Air 03/11/19 17:47 36.9 03/11/19 17:37 62 18 108/64 (79) 98 Room Air 03/11/19 17:22 59 18 115/66 (82) 97 Room Air 03/11/19 17:07 62 18 114/66 (82) 98 Room Air 03/11/19 16:51 58 18 123/70 (87) 99 Room Air 03/11/19 16:44 36.4 03/11/19 16:22 75 18 116/74 (88) 100 Room Air 03/11/19 16:10 71 18 126/61 (82) 97 Room Air 03/11/19 15:52 69 18 113/65 (81) 97 Room Air 03/11/19 15:39 69 18 118/69 (85) 97 Room Air 03/11/19 15:23 67 18 112/72 (85) 97 Room Air 03/11/19 15:08 68 18 121/78 (92) 97 Room Air 03/11/19 14:58 36.5 03/11/19 14:52 79 18 100/60 (73) 97 Room Air 03/11/19 14:32 69 18 110/63 (79) 97 Room Air 03/11/19 14:28 76 18 102/55 (71) 97 Room Air 03/11/19 14:22 77 18 121/56 (77) 97 Room Air 03/11/19 14:17 83 18 117/64 (81) 97 Room Air 03/11/19 14:11 70 18 103/52 (69) 97 Room Air 03/11/19 14:10 36.5 03/11/19 14:08 81 18 106/54 (71) 97 Room Air 03/11/19 14:05 68 18 104/63 (77) 97 Room Air 03/11/19 14:02 87 18 117/75 (89) 98 Room Air 03/11/19 13:59 74 18 118/81 (93) Room Air 03/11/19 13:56 71 18 119/79 (92) 98 Room Air 03/11/19 13:53 71 18 119/75 (90) 94 Room Air 03/11/19 13:50 75 18 124/71 (88) Room Air 03/11/19 13:49 72 18 129/70 (89) 98 Room Air 03/11/19 13:42 162 18 109/48 (68) Room Air 03/11/19 13:26 73 18 96/51 (66) Room Air 03/11/19 12:55 36.4 64 18 97/55 (69) Room Air 03/11/19 12:41 82 18 115/57 (76) Room Air 03/11/19 12:25 68 18 102/51 (68) Room Air 03/11/19 12:21 36.8 03/11/19 12:10 67 18 105/60 (75) Room Air 03/11/19 11:54 70 18 105/58 (74) Room Air 03/11/19 11:40 64 18 105/61 (76) Room Air 03/11/19 11:25 36.4 64 18 114/64 (81) Room Air 03/11/19 11:20 65 18 114/63 (80) Room Air 03/11/19 10:54 75 18 98/56 (70) Room Air 03/11/19 10:39 67 18 98/55 (69) Room Air 03/11/19 10:24 71 18 97/51 (66) Room Air 03/11/19 10:10 65 18 106/54 (71) Room Air 03/11/19 09:40 67 18 117/65 (82) Room Air 03/11/19 09:24 75 18 121/67 (85) Room Air 03/11/19 09:10 69 18 119/65 (83) Room Air 03/11/19 08:58 77 18 126/74 (91) Room Air 03/11/19 08:43 36.6 70 18 120/75 (90) Room Air 03/11/19 08:24 72 18 126/77 (93) Room Air 03/11/19 08:09 78 18 113/76 (88) Room Air 03/11/19 07:54 86 18 123/76 (92) Room Air 03/11/19 07:31 36.5 88 18 126/81 (96) Room Air 03/11/19 06:17 36.7 87 18 97 Room Air Labs Laboratory Tests 03/11/19 06:25: White Blood Count 10.3, Red Blood Count 4.17L, Hemoglobin 12.8, Hematocrit 37, Mean Corpuscular Volume 89, Mean Corpuscular Hemoglobin 31, Mean Corpuscular Hemoglobin Concent 35, Red Cell Distribution Width 14.9H, Platelet Count 207, Mean Platelet Volume 11.9H, Neutrophils (%) (Auto) 71, Lymphocytes (%) (Auto) 21, Monocytes (%) (Auto) 5, Eosinophils (%) (Auto) 2, Basophils (%) (Auto) 1, Neutrophils # (Auto) 7.3, Lymphocytes # (Auto) 2.2, Monocytes # (Auto) 0.6, Eosinophils # (Auto) 0.2, Basophils # (Auto) 0.1 ALBER ERVIN MD Mar 11, 2019 20:00 POS
[2019-03-11] MEDS: IBUPROFEN 600 MG (MOTRIN) TAB PO SCH (20:16)
[2019-03-11] MEDS ORDERED: hydrOXYzine (VISTARIL/ATARAX) 25 MG capsule/tablet PO SCH (21:00)
[2019-03-12] MEDS: DOCUSATE SODIUM 100 MG (COLACE) CAP PO SCH ×3 (01:04→20:28)
[2019-03-12] MEDS: ACETAMINOPHEN 500 MG TAB (TYLENOL) PO SCH ×4 (01:04→20:28)
[2019-03-12 01:11] VITALS: BP 131/88
[2019-03-12] MEDS: IBUPROFEN 600 MG (MOTRIN) TAB PO SCH ×4 (02:00→22:42)
[2019-03-12 04:45] VITALS: BP 88/59
[2019-03-12 06:03] LABS: BASOPHILS # (AUTO) 0.1 10^3/uL (0.0-0.1); BASOPHILS % (AUTO) 1 % (0-10); EOSINOPHILS # (AUTO) 0.3 10^3/uL (0.0-0.3); EOSINOPHILS % (AUTO) 3 % (0-10); HEMATOCRIT 34 % (35-52); HEMOGLOBIN 11.7 G/DL (11.5-16.0); LYMPHOCYTES # (AUTO) 2.2 X 10^3 (1.0-4.0); LYMPHOCYTES % (AUTO) 22 % (12-44); MEAN CORPUSCULAR HEMOGLOBIN 30 PG (25-34); MEAN CORPUSCULAR HGB CONC 34 G/DL (32-36); MEAN CORPUSCULAR VOLUME 88 FL (80-99); MEAN PLATELET VOLUME 11.6 FL (7.4-10.4); MONOCYTES # (AUTO) 0.6 X 10^3 (0.0-1.0); MONOCYTES % (AUTO) 6 % (0-12); NEUTROPHILS # (AUTO) 7.1 X 10^3 (1.8-7.8); NEUTROPHILS % (AUTO) 70 % (42-75); PLATELET COUNT 181 10^3/uL (130-400); RED CELL DISTRIBUTION WIDTH 15.2 % (10.0-14.5); WHITE BLOOD COUNT 10.2 10^3/uL (4.3-11.0)
--- NOTE | 2019-03-12 08:15 | NUR ---
A.M. ASSESSMENT COMPLETED. VSS. IN CRIB AT BEDSIDE. MOM AND S.O. WERE ASLEEP WHEN ENTERED ROOM.
[2019-03-12] MEDS: SERTRALINE 100 MG (ZOLOFT) TAB PO SCH (08:16)
[2019-03-12 08:30] VITALS: BP 121/66
--- NOTE | 2019-03-12 08:32 | Anesthesia-General Post-Op ---
General Patient Condition Mental Status/LOC: Same as Preop Cardiovascular: Satisfactory Nausea/Vomiting: Absent Respiratory: Satisfactory Pain: Controlled Complications: Absent Post Op Complications Complications None Follow Up Care/Instructions Patient Instructions None needed. Anesthesia/Patient Condition Patient Condition Patient is doing well, no complaints, stable vital signs, no apparent adverse anesthesia problems. No complications reported per nursing. YENNY REED CRNA Mar 12, 2019 08:32 POS
--- NOTE | 2019-03-12 10:30 | NUR ---
CARING FOR INFANT IN ROOM. GOOD INTERACTION NOTED. MOM AND S.O. RESTING AT INTERVALS IN BED.
--- NOTE | 2019-03-12 11:30 | NUR ---
ASSISTED WITH FEEDING . NURSERY RN TO ROOM.
[2019-03-12 12:30] VITALS: BP 125/84
--- NOTE | 2019-03-12 15:07 | NUR ---
DR. FIGUEROA NOTIFIED OF PT WANTING TO TAKE HER ATARAX q 8 HRS PRN AT HOME. ORDER RECEIVED.
[2019-03-12] MEDS: hydrOXYzine (VISTARIL/ATARAX) 25 MG capsule/tablet PO PRN (15:27)
--- NOTE | 2019-03-12 16:15 | NUR ---
SLEEPING WHEN ENTERED ROOM FOR VS. WILL LET PT REST.
[2019-03-12 17:00] VITALS: BP 126/71
--- NOTE | 2019-03-12 17:30 | NUR ---
VSS. CARING FOR INFANT IN ROOM. FEEDING WHEN ENTERED ROOM. DENIES ANY PAIN AT THIS TIME.
--- NOTE | 2019-03-12 20:15 | NUR ---
pt just finished using the bathroom. assessment completed. pt denies any concerns. discussed plan of care. all questions answered. will continue to monitor.
[2019-03-12 20:30] VITALS: BP 148/67
--- NOTE | 2019-03-12 22:05 | Postpartum Progress Note ---
Note Note Day # 1 Subjective: Patient is without complaints. Ambulating, voiding. Tolerating a regular diet without nausea or vomiting. Normal lochia. Pain is well controlled with oral pain medications. Bottle feeding. Objective: Physical Exam: General - Alert and oriented, no apparent distress Abdomen - Soft, appropriately tender to palpation, non-distended, fundus firm at umbilicus Extremities - no edema, negative Orlin's bilaterally Assessment: 28 yo G3 now P3 post- day # 1, status post spontaneous vaginal delivery. Recovering well, hemodynamically stable Plan: Routine care. Encourage breast feeding, patient bottle feeding per preference Encourage ambulation. Pain well controlled on PO meds Plan for discharge tomorrow with 6 week post visit with Dr Queen Vitals - Labs Vital Signs - I&O Vital Signs Date Time Temp Pulse Resp B/P (MAP) Pulse Ox O2 Delivery O2 Flow Rate FiO2 03/12/19 17:00 36.8 60 18 126/71 (89) 99 Room Air 03/12/19 12:30 35.8 66 18 125/84 (98) 97 Room Air 03/12/19 08:30 36.5 64 18 121/66 (84) 97 Room Air 03/12/19 04:45 35.8 69 18 88/59 (69) 98 03/12/19 01:11 37.0 69 18 131/88 (102) 03/11/19 22:51 64 18 107/55 (72) 03/11/19 22:36 63 18 115/71 (86) 03/11/19 22:21 68 18 111/68 (82) 03/11/19 22:06 70 18 118/70 (86) I & O 03/12/19 07:00 Intake Total 4000 ml Balance 4000 ml Labs Laboratory Tests 03/12/19 05:53: White Blood Count 10.2, Red Blood Count 3.88L, Hemoglobin 11.7, Hematocrit 34L, Mean Corpuscular Volume 88, Mean Corpuscular Hemoglobin 30, Mean Corpuscular Hemoglobin Concent 34, Red Cell Distribution Width 15.2H, Platelet Count 181, Mean Platelet Volume 11.6H, Neutrophils (%) (Auto) 70, Lymphocytes (%) (Auto) 22, Monocytes (%) (Auto) 6, Eosinophils (%) (Auto) 3, Basophils (%) (Auto) 1, Neutrophils # (Auto) 7.1, Lymphocytes # (Auto) 2.2, Monocytes # (Auto) 0.6, Eosinophils # (Auto) 0.3, Basophils # (Auto) 0.1 SAURABH FIGUEROA MD Mar 12, 2019 22:05 POS
--- NOTE | 2019-03-13 01:00 | NUR ---
Report received from CITLALI Pizarro. Assumed care at this time.
[2019-03-13 02:20] VITALS: BP 108/71
[2019-03-13] MEDS: ACETAMINOPHEN 500 MG TAB (TYLENOL) PO SCH ×2 (02:53→08:29)
[2019-03-13] MEDS: IBUPROFEN 600 MG (MOTRIN) TAB PO SCH ×2 (05:26→13:27)
[2019-03-13 08:00] VITALS: BP 136/94
[2019-03-13] MEDS: DOCUSATE SODIUM 100 MG (COLACE) CAP PO SCH (08:29)
[2019-03-13] MEDS: hydrOXYzine (VISTARIL/ATARAX) 25 MG capsule/tablet PO PRN (08:31)
[2019-03-13] MEDS: SERTRALINE 100 MG (ZOLOFT) TAB PO SCH (08:32)
--- NOTE | 2019-03-13 09:42 | Discharge Summary ---
Diagnosis/Chief Complaint Date of Admission Mar 11, 2019 at 06:10 Date of Discharge 03/13/19 Admission Diagnosis Admission Diagnosis Term Labor Discharge Diagnosis 28 yo G3 now P3 delivered term male infant via Discharge Summary-Simple/Stand Procedures Discharge Physical Examination Allergies: Coded Allergies: No Known Drug Allergies (Unverified , 06/29/16) Vitals & I&Os Vital Sign - Last 12Hours Date Time Temp Pulse Resp B/P (MAP) Pulse Ox O2 Delivery O2 Flow Rate FiO2 03/13/19 08:00 36.3 64 20 136/94 (108) 98 Room Air General Appearance: Alert, Oriented X3, Cooperative, No Acute Distress Respiratory: Clear to Auscultation, Normal Air Movement Cardiovascular: Regular Rate, No Murmurs Abdominal: Normal Bowel Sounds, Soft, No Tenderness, No Masses, Other (Fundus firm and below umbilicus) Extremities: No Edema, No Tenderness/Swelling Neuro: Normal Speech, Strength at 5/5 X4 Ext, Sensation Intact, Cranial Nerves 3-12 NL Hospital Course Was the Problem List Reviewed?: Yes See final discharge diagnosis. Discussion & Recommendations 28 yo G3 now P3 delivered term male infant via Discharge Condition at discharge stable Instructions to patient/family Please see electronic discharge instructions given to patient. Discharge Medications Reviewed and agree with Discharge Medication list on patient's Discharge Instruction sheet Clinical Quality Measures DVT/VTE Risk/Contraindication: Risk Factor Score Per Nursin RFS Level Per Nursing on Admit: 2=Moderate Copy Copies To 1: ALBER ERVIN MD, HOLLY R MD Mar 13, 2019 09:42 POS
[2019-03-13] MEDS ORDERED: SERT100T8 PO (09:43)
[2019-03-13] MEDS ORDERED: IBUP-844 PO (09:43)
--- NOTE | 2019-03-13 09:44 | Discharge Instructions ---
Discharge Inst-[facility] Reconcile Patient Problems Problems Reviewed?: Yes Depart Medications New, Converted or Re-Newed RX: Transmitted to Pharmacy New Medications: Ibuprofen (Ibu) 600 Mg Tablet 600 MG PO Q6H, #90 TAB Sertraline HCl (Sertraline HCl) 100 Mg Tablet 100 MG PO DAILY, #30 TAB Follow Up/Instructions Goal/Follow Up: F/u with Dr Ervin in 6 weeks Activity Activity: Activity as Tolerated Driving Instructions: You May Drive NO SMOKING: NO SMOKING Nothing Inside Vagina: No Douching, No [place], No Tampons Diet Discharge Diet: No Restrictions Symptoms to Report to : Bleeding Excessive, Fever Over 101 Degrees F, Shortness of Breath For Any Problems or Questions: Contact Your Physician Copies To 1: ALBER ERVIN MD, HOLLY R MD Mar 13, 2019 09:44 POS
--- NOTE | 2019-03-13 14:45 | NUR ---
CARMENCITA VICENTE demonstrates understanding of discharge instructions and accurately returns instructions upon questioning. Copy of Post-Discharge Instructions and Medication Discharge Instructions given to patient. CARMENCITA VICENTE is able to manage continuing needs after discharge. Patients belongings returned to patient. Skin dry and intact; no breakdown noted. Patient discharged from [facility]- on 03-13-19 at 1445. CARMENCITA VICENTE left floor via ambulation, accompanied by staff and s/o.
== END 2019-03-13 14:45 | disposition home or self-care (01) | DRG 807 ==
LOC: LDRP 06:10
PROVIDERS: ADMIT Family Medicine; ATTEND Family Medicine
PROC: 10E0XZZ Delivery of Products of Conception, External Approach (ICD-10-PCS; principal; 2019-03-11)
PROC: 3E033VJ Introduction of Other Hormone into Peripheral Vein, Percutaneous Approach (ICD-10-PCS; 2019-03-11)
DX: O80 Encounter for full-term uncomplicated delivery (principal); Z37.0 Single live birth; Z3A.39 39 weeks gestation of pregnancy
CPT/HCPCS: 36415; 85025; 86850; 86900; 86901

== ENCOUNTER → 2019-07-17 | Outpatient (CLI) | payer MEDICAID ==
[~2019-07-17] MED LIST changes: +IBUP-844 PO; +SERT100T8 PO
[2019-07-17 13:04] LABS: HEMOGLOBIN 13.1 G/DL (11.5-16.0); MEAN CORPUSCULAR HEMOGLOBIN 30 PG (25-34); WHITE BLOOD COUNT 7.3 10^3/uL (4.3-11.0)
[2019-07-17 13:05] LABS: BASOPHILS % (AUTO) 1 % (0-10); EOSINOPHILS % (AUTO) 3 % (0-10); HEMATOCRIT 38 % (35-52); MEAN CORPUSCULAR HGB CONC 34 G/DL (32-36); MEAN CORPUSCULAR VOLUME 87 FL (80-99); MEAN PLATELET VOLUME 11.2 FL (7.4-10.4); MONOCYTES % (AUTO) 4 % (0-12); NEUTROPHILS % (AUTO) 74 % (42-75); PLATELET COUNT 210 10^3/uL (130-400); RED CELL DISTRIBUTION WIDTH 14.3 % (10.0-14.5)
[2019-07-17 13:06] LABS: BASOPHILS # (AUTO) 0.1 10^3/uL (0.0-0.1); EOSINOPHILS # (AUTO) 0.2 10^3/uL (0.0-0.3); LYMPHOCYTES # (AUTO) 1.4 X 10^3 (1.0-4.0); LYMPHOCYTES % (AUTO) 18 % (12-44); MONOCYTES # (AUTO) 0.3 X 10^3 (0.0-1.0); NEUTROPHILS # (AUTO) 5.4 X 10^3 (1.8-7.8)
== END ==
LOC: LAB FS 12:31
PROVIDERS: ATTEND Family Medicine
DX: Z34.80 Encounter for supervision of other normal pregnancy, unspecified trimester (principal)
CPT/HCPCS: 36415; 80055; 86703; 87088

== ENCOUNTER → 2019-08-18 | Outpatient (CLI) | payer MEDICAID | LOC: LABNPT 14:42 | PROVIDERS: ATTEND Family Medicine | DX: Z01.89 Encounter for other specified special examinations (principal) ==

== ENCOUNTER → 2019-08-18 | Outpatient (CLI) | payer MEDICAID | LOC: LAB FS 07:42 | PROVIDERS: ATTEND Family Medicine | DX: Z34.80 Encounter for supervision of other normal pregnancy, unspecified trimester (principal) ==

== ENCOUNTER → 2019-08-21 | Outpatient (CLI) | payer MEDICAID | LOC: LAB FS 12:03 | PROVIDERS: ATTEND Family Medicine | DX: Z34.80 Encounter for supervision of other normal pregnancy, unspecified trimester (principal); Z3A.00 Weeks of gestation of pregnancy not specified | CPT/HCPCS: 36415; 82105; 84702; 86336 ==

== ENCOUNTER → 2019-10-16 | Outpatient (CLI) | payer MEDICAID ==
[2019-10-16 13:54] LABS: BASOPHILS % (AUTO) 1 % (0-10); EOSINOPHILS % (AUTO) 2 % (0-10); HEMATOCRIT 36 % (35-52); HEMOGLOBIN 12.2 G/DL (11.5-16.0); LYMPHOCYTES % (AUTO) 17 % (12-44); MEAN CORPUSCULAR HEMOGLOBIN 31 PG (25-34); MEAN CORPUSCULAR HGB CONC 34 G/DL (32-36); MEAN CORPUSCULAR VOLUME 90 FL (80-99); MEAN PLATELET VOLUME 11.8 FL (7.4-10.4); MONOCYTES % (AUTO) 4 % (0-12); NEUTROPHILS % (AUTO) 76 % (42-75); PLATELET COUNT 188 10^3/uL (130-400); RED CELL DISTRIBUTION WIDTH 14.4 % (10.0-14.5); WHITE BLOOD COUNT 9.9 10^3/uL (4.3-11.0)
[2019-10-16 13:55] LABS: BASOPHILS # (AUTO) 0.1 10^3/uL (0.0-0.1); EOSINOPHILS # (AUTO) 0.2 10^3/uL (0.0-0.3); LYMPHOCYTES # (AUTO) 1.7 X 10^3 (1.0-4.0); MONOCYTES # (AUTO) 0.4 X 10^3 (0.0-1.0); NEUTROPHILS # (AUTO) 7.5 X 10^3 (1.8-7.8)
== END ==
LOC: LAB FS 12:11
PROVIDERS: ATTEND Family Medicine
DX: Z34.90 Encounter for supervision of normal pregnancy, unspecified, unspecified trimester (principal); Z3A.00 Weeks of gestation of pregnancy not specified
CPT/HCPCS: 36415; 82950; 85025; 86780

== ENCOUNTER 2020-01-21 06:00 | Inpatient (IN) | payer MEDICAID ==
[2020-01-21] VITALS (54 sets, daily range): BP systolic 95–135; BP diastolic 55–91
[~2020-01-21] VITALS: Ht 172.7 cm; Wt 113.4 kg
--- NOTE | 2020-01-21 06:32 | NUR ---
CARMENCITA VICENTE presented to unit via ambulation from home/ED, accompanied by SO, for INDUCTION. CARMENCITA VICENTE weighed, gowned, voided, and to bed. EFHM and TOCO applied, VS taken. CARMENCITA VICENTE oriented to bed controls, call light, TV, heat, and A/C controls.
[2020-01-21] MEDS ORDERED: MINERAL OIL CONCENTRATE 99.9% 15 ML UDC TOP PRN (06:45)
[2020-01-21 07:10] LABS: BASOPHILS # (AUTO) 0.1 10^3/uL (0.0-0.1); BASOPHILS % (AUTO) 1 % (0-10); EOSINOPHILS # (AUTO) 0.2 10^3/uL (0.0-0.3); EOSINOPHILS % (AUTO) 2 % (0-10); HEMATOCRIT 37 % (35-52); HEMOGLOBIN 12.9 g/dL (11.5-16.0); LYMPHOCYTES # (AUTO) 3.1 10^3/uL (1.0-4.0); LYMPHOCYTES % (AUTO) 25 % (12-44); MEAN CORPUSCULAR HEMOGLOBIN 31 pg (25-34); MEAN CORPUSCULAR HGB CONC 35 g/dL (32-36); MEAN CORPUSCULAR VOLUME 90 fL (80-99); MEAN PLATELET VOLUME 12.5 fL (9.0-12.2); MONOCYTES # (AUTO) 0.8 10^3/uL (0.0-1.0); MONOCYTES % (AUTO) 6 % (0-12); NEUTROPHILS # (AUTO) 8.5 10^3/uL (1.8-7.8); NEUTROPHILS % (AUTO) 66 % (42-75); PLATELET COUNT 226 10^3/uL (130-400); WHITE BLOOD COUNT 12.8 10^3/uL (4.3-11.0)
[2020-01-21] MEDS ORDERED: OXYTOCIN PRE-MIX DRIP 500 ML IV SCH ×2 (07:49→16:34)
[2020-01-21] MEDS: D5 LR IV SOLUTION 1,000 ML IV SCH ×2 (07:54→14:39)
[2020-01-21] MEDS ORDERED: fentaNYL 2 mcg/ml BUPIVA 0.125 100 ML ONE (08:24)
[2020-01-21] MEDS ORDERED: fentaNYL INJECTION 100 MCG/2 ML AMP ONE (10:04)
[2020-01-21] MEDS ORDERED: BUPIVACAINE 0.25% 30 ML (SENSORCAINE) VIAL ONE (10:04)
[2020-01-21] MEDS ORDERED: LACTATED RINGERS 1,000 ML IV ONE ×2 (10:04)
[2020-01-21] MEDS ORDERED: LIDOCAINE PF 2% 5 ML (XYLOCAINE) VIAL ONE ×2 (10:04→11:24)
[2020-01-21] MEDS ORDERED: NALOXONE 0.4 MG/ML 1 ML (NARCAN) VIAL IV PRN (10:15)
[2020-01-21] MEDS ORDERED: fentaNYL INJECTION 100 MCG/2 ML AMP INJ ONE (10:15)
[2020-01-21] MEDS ORDERED: ONDANSETRON 4 MG/2 ML (SDV) Z0FRAN IV PRN (10:15)
[2020-01-21] MEDS ORDERED: EPIDURAL (fentaNYL 2 MCG/ML BUPIVA 0.125%)100 ML BAG EPI PRN (10:15)
[2020-01-21] MEDS ORDERED: LIDOCAINE/EPI 2% 1:200,00 (XYLOCAINE) 10 ML VIAL ONE (15:40)
--- NOTE | 2020-01-21 15:56 | NUR ---
spontaneous vaginal delivery of placenta with cord. fundal massage per dr thompson. pitocin increased to 999ml/hr.
--- NOTE | 2020-01-21 16:05 | NUR ---
pericare, pad under pt. pt assisted to sf position for recovery. plan of care reviewed with pt and s.o. 1609 vss ffu/0 with lt-mod rubra noted, no clots expressed. 1622 vss. ffu/0 with lt-mod rubra noted, no clots expressed. 1634 vss. ffu/0 with lt-mod rubra noted, no clots expressed. 1649 vss ffu/0 with lt-mod rubra noted, no clots expressed.
[2020-01-21] MEDS: CATHETER FLUSH 10 ML SYR IV SCH (16:23)
--- NOTE | 2020-01-21 16:39 | OB Labor & Delivery Record ---
L&D History Date of Service Date of Service: Jan 21, 2020 History Expected Date of Delivery: Jan 25, 2020 Gestational Age in Weeks: 39 Complications Events: Routine care ( care with Dr. Queen) Operative Indications (Cesarea: N/A-Vaginal Delivery Intrapartal Events: None L&D Stage1 Stage One Onset of Labor - Date: Jan 21, 2020 Monitors and Tracing Monitor Mode: Internal Heart Rate: 130 Monitor Accelerations: Uniform Monitor Decelerations: None Station: -2 Title Assistant Variability: Average (6-10) Short Term Variability: Present Presentation: Vertex Vital Signs VS - Last 72 Hours, by Label 01/21/20 01/21/20 01/21/20 01/21/20 07:00 07:40 08:05 08:20 Temp 36.5 Pulse 79 88 81 87 Resp 18 18 18 18 B/P (MAP) 120/71 (87) 123/75 (91) 128/71 (90) Pulse Ox 96 96 98 O2 Delivery Room Air Room Air Room Air Room Air 01/21/20 01/21/20 01/21/20 01/21/20 08:35 08:50 09:05 09:20 Pulse 76 75 69 72 Resp 18 18 18 18 B/P (MAP) 122/64 (83) 126/70 (88) 115/64 (81) 119/78 (92) Pulse Ox 97 O2 Delivery Room Air Room Air Room Air Room Air 01/21/20 01/21/20 01/21/20 01/21/20 09:35 09:50 10:05 10:12 Temp 37.0 Pulse 71 71 66 72 Resp 18 18 18 18 B/P (MAP) 126/74 (91) 116/81 (93) 119/72 (88) 121/71 (88) Pulse Ox 99 O2 Delivery Room Air Room Air Room Air Room Air 01/21/20 01/21/20 01/21/20 01/21/20 10:18 10:23 10:28 10:30 Pulse 78 76 82 74 Resp 18 18 18 18 B/P (MAP) 135/78 (97) 117/77 (90) 117/77 (90) 116/76 (89) Pulse Ox 99 98 98 97 O2 Delivery Room Air Room Air Room Air Room Air 01/21/20 01/21/20 01/21/2021/20 10:33 10:35 10:36 10:38 Pulse 75 75 71 Resp 18 18 18 B/P (MAP) 122/64 (83) 122/64 (83) 124/67 (86) Pulse Ox 97 97 97 O2 Delivery Room Air Room Air Room Air Room Air 01/21/20 01/21/20 01/21/20 01/21/20 10:40 10:43 10:45 10:50 Pulse 77 68 68 72 Resp 18 18 18 18 B/P (MAP) 122/63 (82) 120/68 (85) 120/68 (85) 116/84 (95) Pulse Ox 97 97 97 94 O2 Delivery Room Air Room Air Room Air Room Air 01/21/20 01/21/20 01/21/20 01/21/20 10:53 11:00 11:05 11:10 Pulse 67 67 73 Resp 18 18 18 B/P (MAP) 118/68 (85) 115/68 (84) 117/66 (83) Pulse Ox 94 93 96 O2 Delivery Room Air Room Air Room Air Room Air 01/21/20 01/21/20 01/21/20 01/21/20 11:15 11:25 11:28 11:30 Pulse 68 73 70 81 Resp 18 18 18 18 B/P (MAP) 119/70 (86) 119/71 (87) 116/65 (82) 119/67 (84) Pulse Ox 94 96 96 97 O2 Delivery Room Air Room Air Room Air Room Air 01/21/20 01/21/20 01/21/20 01/21/20 11:33 11:36 11:45 11:55 Pulse 80 86 82 Resp 18 18 18 B/P (MAP) 110/62 (78) 108/55 (72) 118/69 (85) Pulse Ox 96 98 98 O2 Delivery Room Air Room Air Room Air Room Air 01/21/20 01/21/20 01/21/20 01/21/20 12:00 12:10 12:15 12:25 Pulse 87 83 Resp 18 18 B/P (MAP) 113/69 (84) 116/76 (89) Pulse Ox 98 97 O2 Delivery Room Air Room Air Room Air Room Air 01/21/20 01/21/20 01/21/20 01/21/20 12:30 12:45 13:00 13:15 Temp 37.1 Pulse 89 83 74 Resp 18 18 18 B/P (MAP) 135/91 (106) 130/81 (97) 133/84 (100) Pulse Ox 98 98 O2 Delivery Room Air Room Air Room Air Room Air 01/21/20 01/21/20 01/21/20 01/21/20 13:30 13:45 14:00 14:15 Temp 36.8 Pulse 72 77 68 67 Resp 18 18 18 18 B/P (MAP) 129/64 (85) 119/65 (83) 117/69 (85) 120/66 (84) O2 Delivery Room Air Room Air Room Air Room Air 01/21/20 01/21/20 14:30 14:45 Pulse 70 68 Resp 18 18 B/P (MAP) 129/70 (89) 122/64 (83) O2 Delivery Room Air Room Air Rupture of Membranes Spontaneous Ruture of Membrane: No Amniotic Membrane Rupture Time: 0853 Amniotic Membrane Fluid Desc.: Clear Vaginal Bleeding Description: Normal Show Induction/Anesthesia Epidural Cath Placement - Time: 1021 Progress/Notes Patient progressed with Dr. Olivarez pitocin protocol orders, and received an epidural. She progressed to complete and +2 station L&D Stage2 Stage Two Stage II Date: Jan 21, 2020 Monitors and Tracing Monitor Mode: Internal Heart Rate: 130 Monitor Accelerations: Uniform Monitor Decelerations: None Title Assistant Variability: Average (6-10) Short Term Variability: Present Position: Right Occiput Anterior Presentation: Vertex Cord Descript/Complications Cord Vessel Description: 3 Vessels Delivery Type Delivery Method: Spontaneous Vaginal Anterior Shoulder: Left Episiotomy/Perineal Laceration Laceraction(s)/Extensions: No Condition of Infant Delivery Notes Live female infant weight and apgars pending. Condition of Infant Condition of Infant: Living Exam: No Observed Abnormalities Resuscitation Resuscitation: Bag and Mask L&D Stage3 Stage Three Stage III Date: Jan 21, 2020 Pictocin Pitocin Administration mu/min: 20 Pitocin ml/hr: 20 Pitocin Administration Comment: 30 mu wide open after delivery of placenta Placenta Delivery Placenta Delivery: Spontaneous Delivery Summary Summary Estimated blood loss (mL): 250 Attending at delivery: Samuel Bundy DO Condition of Delivery Examined: Cervix Examined, Uterus Explored Post Hemorrhage: No Condition of Mother stable Condition of Infant (s) stable SAMUEL BUNDY DO Jan 21, 2020 4:39 pm
[2020-01-21] MEDS ORDERED: HYDROcodone/APAP 5 MG/325 MG (LORTAB) TAB PO PRN (16:45)
[2020-01-21] MEDS ORDERED: WITCH HAZEL(TUCKS) 40 EA JAR TOP PRN (16:45)
[2020-01-21] MEDS ORDERED: TETANUS,DIPTH,PERTUSS P/F (BOOSTRIX) 0.5 ML VIAL IM ONE (16:45)
[2020-01-21] MEDS ORDERED: BENZOCAINE/MENTHOL (DERMOPLAST) 60 ML CAN TP PRN (16:45)
[2020-01-21] MEDS ORDERED: MEASLES,MUMPS,RUBELLA 1 EA INJ SQ ONE (16:45)
[2020-01-21] MEDS ORDERED: DIBUCAINE (NUPERCAINAL) 1% OINT 30 GM TOP PRN (16:45)
--- NOTE | 2020-01-21 17:15 | NUR ---
pericare, pad changed. underwear on. gown changed. Assisted to wheelchair and to nsy to see . belongings to pp room per s.o.
--- NOTE | 2020-01-21 17:53 | NUR ---
Wheeled to room 312 from [facility]. Assisted to bed, call light with in reach. pt denies needs.
[2020-01-21] MEDS: IBUPROFEN 600 MG (MOTRIN) TAB PO SCH (18:17)
--- NOTE | 2020-01-21 18:21 | NUR ---
Assisted up to bathroom. Void, pericare. pt ambulates well with steady gait. Back to bed.
--- NOTE | 2020-01-21 21:00 | NUR ---
Pt. ambulated to nsy w/SO to visit & feed infant, denies pain or needs.
[2020-01-21] MEDS ORDERED: CATHETER FLUSH 10 ML SYR IV SCH (22:00)
[2020-01-21] MEDS: DOCUSATE SODIUM 100 MG (COLACE) CAP PO SCH (22:01)
[2020-01-22] MEDS: CATHETER FLUSH 10 ML SYR IV SCH (00:23)
[2020-01-22] MEDS: IBUPROFEN 600 MG (MOTRIN) TAB PO SCH ×3 (00:47→11:54)
[2020-01-22 00:48] VITALS: BP 122/61
[2020-01-22 05:00] VITALS: BP 120/69
[2020-01-22 06:10] LABS: BASOPHILS # (AUTO) 0.1 10^3/uL (0.0-0.1); BASOPHILS % (AUTO) 1 % (0-10); EOSINOPHILS # (AUTO) 0.3 10^3/uL (0.0-0.3); EOSINOPHILS % (AUTO) 3 % (0-10); HEMATOCRIT 34 % (35-52); HEMOGLOBIN 11.6 g/dL (11.5-16.0); LYMPHOCYTES # (AUTO) 3.7 10^3/uL (1.0-4.0); LYMPHOCYTES % (AUTO) 29 % (12-44); MEAN CORPUSCULAR HEMOGLOBIN 31 pg (25-34); MEAN CORPUSCULAR HGB CONC 34 g/dL (32-36); MEAN CORPUSCULAR VOLUME 92 fL (80-99); MEAN PLATELET VOLUME 12.6 fL (9.0-12.2); MONOCYTES # (AUTO) 0.6 10^3/uL (0.0-1.0); MONOCYTES % (AUTO) 5 % (0-12); NEUTROPHILS # (AUTO) 8.1 10^3/uL (1.8-7.8); NEUTROPHILS % (AUTO) 63 % (42-75); PLATELET COUNT 191 10^3/uL (130-400)
--- NOTE | 2020-01-22 06:37 | Anesthesia-Regional Post-Op ---
Regional Patient Condition Mental Status: Alert, Oriented x3 Circulation: Same as Pre-Op Headache: Absent Sensation: Full Recovery Motor Block: Absent Post Op Complications Complications None Follow Up Care/Instructions Patient Instructions None needed. Anesthesia/Patient Condition Patient is doing well, no complaints, stable vital signs, no apparent adverse anesthesia problems. No complications reported per nursing. D/C home per [facility] Criteria: No PONCHO REED CRNA Jan 22, 2020 06:37
[2020-01-22] MEDS ORDERED: PRENATAL VITAMIN 1 EA TAB PO SCH (07:00)
[2020-01-22] MEDS ORDERED: FERROUS SULF 325 MG (IRON) TAB PO SCH (08:00)
[2020-01-22] MEDS ORDERED: IBUP-844 PO (08:16)
--- NOTE | 2020-01-22 08:17 | Discharge Summary ---
Discharge Inst-[facility] Reconcile Patient Problems Problems Reviewed?: Yes Depart Medications New, Converted or Re-Newed RX: Transmitted to Pharmacy Follow Up/Instructions Goal/Follow Up: Dr. ervin in 6 weeks. Activity Activity: Activity as Tolerated Driving Instructions: You May Drive NO SMOKING: NO SMOKING Nothing Inside Vagina: No Douching, No [place], No Tampons Diet Discharge Diet: No Restrictions Symptoms to Report to : Fever Over 101 Degrees F, Vaginal Bleeding Increase For Any Problems or Questions: Contact Your Physician ALBER ERVIN MD Jan 22, 2020 08:17
--- NOTE | 2020-01-22 08:20 | History & Physical-OB ---
OB - Chief Complaint & HPI Date/Time Date of Admission: Date of Admission: Jan 21, 2020 at 06:17 Date seen by a Provider: Jan 21, 2020 Time Seen by a Provider: 09:00 Chief Complaint/History OB-Reason for Admission/Chief: Induction of Labor Hx : 6 Hx Para: 4 Expected Date of Delivery: Jan 25, 2020 Gestational Age in Weeks: 39 Gestational Age in Days: 3 Admission Nurse Assessment Rev: Yes Allergies and Home Medications Allergies Coded Allergies: No Known Drug Allergies (Unverified , 06/29/16) Home Medications Ibuprofen 600 Mg Tablet, 600 MG PO Q6H Prescribed by: ALBER ERVIN on 01/22/20 0816 Sertraline HCl 100 Mg Tablet, 100 MG PO DAILY Prescribed by: SAURABH FIGUEROA on 03/13/19 0943 Patient Home Medication List Home Medication List Reviewed: Yes OB - History Hx of Present Care: Yes Ultrasounds: Normal mid trimester US Obstetrical Complications: None Medical Complications: None Patient Past Medical History previously healthy Social History/Family History Recent Infectious Disease Expo: No Alcohol Use: Denies Use Recreational Drug Use: No 2nd Hand Smoke Exposure: Yes Immunizations Tetanus Booster (TDap): Unknown Date of Influenza Vaccine: Dec 16, 2019 OB - Admission Exam Physical Exam Vitals: Vital Signs 01/21/20 01/22/20 13:00 05:00 Temp 36.8 Pulse 68 Resp 18 B/P (MAP) 120/69 (86) Pulse Ox 98 O2 Delivery Room Air HEENT: NCAT Heart: Rhythm Normal Lungs: Clear Abdomen: Gravid Extremities: Normal Reflexes: Normal Cervical Dilatation: 3cm Effacement: 25% Station: -3 Membranes: Intact Amniotic Fluid: Clear Heart Rate: 120's Accelerations: Accelerations Present Decelerations: No Decelerations Short Term Variability: Present Contractions on Admission: < 5 Minutes Apart Labs Laboratory Tests Test 01/22/20 00:53 Range/Units White Blood Count 13.0 H 4.3-11.0 10^3/uL Red Blood Count 3.73 L 3.80-5.11 10^6/uL Hemoglobin 11.6 11.5-16.0 g/dL Hematocrit 34 L 35-52 % Mean Corpuscular Volume 92 80-99 fL Mean Corpuscular Hemoglobin 31 25-34 pg Mean Corpuscular Hemoglobin Concent 34 32-36 g/dL Red Cell Distribution Width 15.1 H 10.0-14.5 % Platelet Count 191 130-400 10^3/uL Mean Platelet Volume 12.6 H 9.0-12.2 fL Immature Granulocyte % (Auto) 1 % Neutrophils (%) (Auto) 63 42-75 % Lymphocytes (%) (Auto) 29 12-44 % Monocytes (%) (Auto) 5 0-12 % Eosinophils (%) (Auto) 3 0-10 % Basophils (%) (Auto) 1 0-10 % Neutrophils # (Auto) 8.1 H 1.8-7.8 10^3/uL Lymphocytes # (Auto) 3.7 1.0-4.0 10^3/uL Monocytes # (Auto) 0.6 0.0-1.0 10^3/uL Eosinophils # (Auto) 0.3 0.0-0.3 10^3/uL Basophils # (Auto) 0.1 0.0-0.1 10^3/uL Immature Granulocyte # (Auto) 0.1 0.0-0.1 10^3/uL OB - Assessment/Plan/Diagnosis Assessment Assessment: induction of labor Admission Dx Induction of labor at 39 3/7 wga. Admission Status: Inpatient Order (span 2 midnights) Reason for Inpatient Admission: Induction of labor. Plan Induction Method: per Pitocin Protocol Other Plan AROM by Dr. Alcantara. Santiago. Epidural for pain. ALBER ERVIN MD Jan 22, 2020 08:20
--- NOTE | 2020-01-22 08:21 | Discharge Summary ---
Diagnosis/Chief Complaint Date of Admission Jan 21, 2020 at 06:17 Date of Discharge Jan 22, 2020 Admission Diagnosis Admission Diagnosis Induction of labor at 39 3/7 wga. Discharge Diagnosis Vaginal delivery at 39 3/7 wga. Problems/Diagnosis: (1) Elective induction of labor planned Discharge Summary-OBS Procedures None. Discharge Physical Examination Allergies: Coded Allergies: No Known Drug Allergies (Unverified , 06/29/16) Vitals & I&Os Intake and Output 01/22/20 00:00 Intake Total 100 ml Balance 100 ml Vital Sign - Last 12Hours Date Time Temp Pulse Resp B/P (MAP) Pulse Ox O2 Delivery O2 Flow Rate FiO2 01/22/20 05:00 36.8 68 18 120/69 (86) Room Air 01/21/20 13:00 98 General Appearance: Alert, Oriented X3 HEENT: Atraumatic Respiratory: Clear to Auscultation Cardiovascular: Regular Rate Abdominal: Other (fundus firm) Extremities: No Edema Skin: No Rashes Neuro: Normal Gait Psych/Mental Status: Mental Status NL Hospital Course Was the Problem List Reviewed?: Yes course uneventful. Labs Laboratory Tests 01/22/20 00:53: White Blood Count 13.0H, Red Blood Count 3.73L, Hemoglobin 11.6, Hematocrit 34L, Mean Corpuscular Volume 92, Mean Corpuscular Hemoglobin 31, Mean Corpuscular Hemoglobin Concent 34, Red Cell Distribution Width 15.1H, Platelet Count 191, Mean Platelet Volume 12.6H, Immature Granulocyte % (Auto) 1, Neutrophils (%) (Auto) 63, Lymphocytes (%) (Auto) 29, Monocytes (%) (Auto) 5, Eosinophils (%) (Auto) 3, Basophils (%) (Auto) 1, Neutrophils # (Auto) 8.1H, Lymphocytes # (Auto) 3.7, Monocytes # (Auto) 0.6, Eosinophils # (Auto) 0.3, Basophils # (Auto) 0.1, Immature Granulocyte # (Auto) 0.1 Discharge Instructions to patient/family Please see electronic discharge instructions given to patient. Discharge Medications Reviewed and agree with Discharge Medication list on patient's Discharge Instruction sheet Clinical Quality Measures DVT/VTE Risk/Contraindication: Risk Factor Score Per Nursin RFS Level Per Nursing on Admit: 2=Moderate ALBER ERVIN MD Jan 22, 2020 08:21
[2020-01-22 09:04] VITALS: BP 125/61
[2020-01-22] MEDS: DOCUSATE SODIUM 100 MG (COLACE) CAP PO SCH (09:04)
[2020-01-22 11:51] VITALS: BP 119/74
--- NOTE | 2020-01-22 12:05 | NUR ---
Discharge instructions explained to pt with copy provided. Pt verbalizes understanding and signs to verify. Rooming in status explained to parents and verbalize understanding. Mother denies any needs or concerns at this time
== END 2020-01-22 12:05 | disposition home or self-care (01) | DRG 807 ==
LOC: LDRP 06:17
PROVIDERS: ADMIT Family Medicine; ATTEND Family Medicine
PROC: 10E0XZZ Delivery of Products of Conception, External Approach (ICD-10-PCS; principal; 2020-01-21)
PROC: 3E033VJ Introduction of Other Hormone into Peripheral Vein, Percutaneous Approach (ICD-10-PCS; 2020-01-21)
DX: O99.334 Smoking (tobacco) complicating childbirth (principal); Z37.0 Single live birth; F17.210 Nicotine dependence, cigarettes, uncomplicated; Z3A.39 39 weeks gestation of pregnancy
CPT/HCPCS: 36415; 85025; 86780; 86850; 86900; 86901